=== PATIENT | male | born 1985 | race African-American/Black ===

== ENCOUNTER 2018-05-28 01:07 | Emergency (ER) | payer OTHER, SELFPAY ==
[~2018-05-28] VITALS: Ht 170.2 cm; Wt 71.7 kg
[~2018-05-28 01:07] MED LIST: IBUPROFEN600 MG ORAL; NKM; NORCO 5-325 TA1 EACH ORAL
[2018-05-28 01:25] VITALS: BP 105/69
--- NOTE | 2018-05-28 01:37 | NUR ---
ED Nurse Note: pt verbalized the intention to leave the ed without being seen by the ed, pt stated he doesnt want to wait.
== END 2018-05-28 01:37 | disposition left against medical advice (07) ==
LOC: EMR 01:37
DX: Z53.21 Procedure and treatment not carried out due to patient leaving prior to being seen by health care provider (principal)
CPT/HCPCS: 99281

== ENCOUNTER 2018-06-05 23:45 | Emergency (ER) | payer OTHER ==
[~2018-06-05] VITALS: Ht 170.2 cm; Wt 71.2 kg
[2018-06-06 00:05] VITALS: BP 104/63
--- NOTE | 2018-06-06 00:05 | NUR ---
ED Nurse Note: Suture removal RRF over MIP - placed last Sunday.
[2018-06-06 00:42] VITALS: BP 104/63
--- NOTE | 2018-06-06 00:42 | NUR ---
ER DISCHARGE NOTE: Patient is cleared to be discharged per ERMD, pt is aox4, on room air, with stable vital signs. pt was given dc instructions, pt was able to verbalize understanding, pt id band removed. pt is able to ambulate with steady gait. pt took all belongings.
--- NOTE | 2018-06-06 00:49 | Emergency Room Report ---
History of Present Illness General Chief Complaint: Wound Recheck/Suture Removal Source: Patient Present Illness HPI Patient presents for removal of stitches over his right middle finger Patient reports that they were put in approximately 2 weeks ago at [facility] Patient reports that he had some delay in removal Denies any fevers or chills feels that the area is healing well has full mobility of his fingers denies any redness or swelling Allergies: Coded Allergies: No Known Allergies (Unverified , 10/16/13) Patient History Past Medical History: see triage record Pertinent Family History: none Reviewed Nursing Documentation: PMH: Agreed; PSxH: Agreed Nursing Documentation-PMH Past Medical History: No Stated History Review of Systems All Other Systems: negative except mentioned in HPI Physical Exam Vital Signs Date Time Temp Pulse Resp B/P (MAP) Pulse Ox O2 Delivery O2 Flow Rate FiO2 06/05/18 23:54 97.9 77 16 104/63 97 Room Air Sp02 EP Interpretation: reviewed, normal General Appearance: well appearing, no apparent distress Head: normocephalic, atraumatic Eyes: bilateral eye PERRL, bilateral eye EOMI ENT: hearing grossly normal, normal pharynx, TMs + canals normal, uvula midline Neck: supple Musculoskeletal: normal inspection Neurologic: alert, oriented x3 Skin: other - Healing laceration dorsally, no obvious dehiscence Medical Decision Making Diagnostic Impression: Primary Impression: suture removal ER Course 4 sutures are removed in the appropriate manner using a suture removal kit There was no obvious retained foreign body Patient tolerated the procedure well And has instructions for close outpatient follow-up Last Vital Signs Date Time Temp Pulse Resp B/P (MAP) Pulse Ox O2 Delivery O2 Flow Rate FiO2 06/06/18 00:42 97.9 77 16 104/63 97 Room Air Status: improved Disposition: HOME, SELF-CARE Condition: Improved Referrals: [place] VARGHESE,REFERRING (PCP) Patient Instructions: Suture Removal, Care After Additional Instructions: Patient is provided with the discharge instructions notified to follow up with primary doctor in the next 2-3 days otherwise return to the er with any worsening symptoms. Please note that this report is being documented using [employer] technology. This can lead to erroneous entry secondary to incorrect interpretation by the dictating instrument. Jimbo Martinez DO Jun 06, 2018 00:49
== END 2018-06-06 00:42 | disposition home or self-care (01) ==
LOC: EMR 06-06 00:18
DX: Z48.02 Encounter for removal of sutures (principal)
CPT/HCPCS: 99281

== ENCOUNTER 2018-06-25 12:31 | Emergency (ER) | payer OTHER ==
[~2018-06-25] VITALS: Ht 170.2 cm; Wt 68.0 kg
--- NOTE | 2018-06-25 12:54 | NUR ---
ED Nurse Note: Pt is complaining of rt shoulder pain x 2 weeks. Pt stated that it started after playing basketball 2 weeks ago. Pt is complaining of 7/10 pain in the rt shoulder. Non radiating. A + O x4. Ambulatory. Skin warm to touch.
[2018-06-25 12:56] VITALS: BP 125/80
--- NOTE | 2018-06-25 13:43 | Emergency Room Report ---
History of Present Illness General Chief Complaint: Shoulder Injury Source: Patient Present Illness HPI 33 YO Male presents to the ED c/o 12/10 in severity Right shoulder pain, acute onset after catching a basket ball. pt. is right hand dominant. movement of the right arm such as raising exacerbates pain, rest gives some relief. Denies trauma or fall. Denies numbness tingling or loss of sensation or gross motor movements of the extremities, incontinence of bowel or bladder. Denies CP, Palpitations, LOC, AMS, dizziness, Changes in Vision, weakness or a sudden severe headache. Allergies: Coded Allergies: No Known Allergies (Unverified , 10/16/13) Patient History Past Medical History: none Past Surgical History: none Pertinent Family History: none Reviewed Nursing Documentation: PMH: Agreed; PSxH: Agreed Nursing Documentation-PMH Past Medical History: No Stated History Review of Systems All Other Systems: negative except mentioned in HPI Physical Exam Vital Signs Date Time Temp Pulse Resp B/P (MAP) Pulse Ox O2 Delivery O2 Flow Rate FiO2 06/25/18 12:45 98.1 61 14 128/85 98 Room Air Sp02 EP Interpretation: reviewed, normal General Appearance: no apparent distress, alert, GCS 15, non-toxic Head: normocephalic, atraumatic Eyes: bilateral eye normal inspection, bilateral eye PERRL ENT: hearing grossly normal, normal voice Neck: full range of motion Respiratory: lungs clear, normal breath sounds, speaking full sentences Cardiovascular #1: regular rate, rhythm, normal capillary refill Musculoskeletal: back normal, gait/station normal, normal range of motion, tender - TTP anterior and posterior right shoulder, no weakness, pain with rom and raisign above 90*, positive lift off test. , no clicking or step-off Neurologic: alert, oriented x3, responsive, motor strength/tone normal, sensory intact, speech normal, grossly normal Psychiatric: judgement/insight normal Skin: normal color, no rash, warm/dry, well hydrated Medical Decision Making PA Attestation Dr. Velasquez is my supervising physician whom pt. management has been discussed with. Diagnostic Impression: Primary Impression: Shoulder pain, acute Qualified Codes: M25.511 - Pain in right shoulder Additional Impression: Sprain, subscapularis Qualified Codes: S46.811A - Strain of other muscles, fascia and tendons at shoulder and upper arm level, right arm, initial encounter ER Course 33 YO Male presents to the ED c/o 12/10 in severity Right shoulder pain, acute onset after catching a basket ball. pt. is right hand dominant. movement of the right arm such as raising exacerbates pain, rest gives some relief. Denies trauma or fall. Denies numbness tingling or loss of sensation or gross motor movements of the extremities, incontinence of bowel or bladder. Denies CP, Palpitations, LOC, AMS, dizziness, Changes in Vision, weakness or a sudden severe headache. Ddx considered but are not limited to Fracture, dislocation, contusion, Sprain/ Strain/Spasm, Rotator cuff tear/sprain, tendinitis, labral tear to name a few Vital signs: are WNL, pt. is afebrile H&PE are most consistent with musculoskeletal injury will perform imaging to r/ o fractures/dislocations. ---Positive lift off test. ORDERS: - X-ray's ED INTERVENTIONS: - Toradol IM --- Right arm Sling applied by technical support assistant. Pt. remains neurovascularly intact. d/w pt. conservative treatment, and to follow up with a primary care provider. pt given a list of primary care clinics for follow up. d/w pt. to return to the ED with worsening or new symptoms. DISCHARGE: At this time pt. is stable for d/c to home. Will provide printed patient care instructions, and any necessary prescriptions. Care plan and follow up instructions have been discussed with the patient prior to discharge. Other X-Ray Diagnostic Results Other X-Ray Diagnostic Results : X-Ray ordered: Right shoulder # of Views/Limited Vs Complete: 3 View Indication: Pain EP Interpretation: Yes TALIA Xray: Interpretation reviewed, by supervising MD, and agrees with findings. Interpretation: no dislocation, no soft tissue swelling, no fractures Impression: No acute disease Electronically Signed by: Ingrid Nielson PA-C Last Vital Signs Date Time Temp Pulse Resp B/P (MAP) Pulse Ox O2 Delivery O2 Flow Rate FiO2 06/25/18 12:56 98.0 66 16 125/80 98 Room Air Status: improved Disposition: HOME, SELF-CARE Condition: Stable Scripts Ibuprofen* (MOTRIN*) 600 Mg Tablet 600 MG ORAL THREE TIMES A DAY, #30 TAB 0 Refills Prov: Ingrid Nielson 06/25/18 Referrals: [place] VARGHESE,REFERRING (PCP) Patient Instructions: Shoulder Sprain, Shoulder Pain Additional Instructions: Take medications as directed. Follow up with an PLASTIC FIXTURE BUILDER in 3-5 days, even if your symptoms have resolved. If symptoms persist MRI may be required at the discretion of your PCP or Ortho Specialist. --Please review list of primary care clinics, if you do not already have a primary care provider who can give you an Orthopedic Referral. Return sooner to ED if new symptoms occur, or current symptoms become worse. Do not drink alcohol, drive, or operate heavy machinery while taking [place] as this may cause drowsiness. - Please note that this Emergency Department Report was dictated using [employer] captain technology software, occasionally this can lead to erroneous entry secondary to interpretation by the dictation equipment. Ingrid Nielson Jun 25, 2018 13:43
[2018-06-25] MEDS ORDERED: IBUPROFEN600 MG ORAL (13:44)
[2018-06-25] MEDS ORDERED: Ketorolac 30mg Inj IM ONE (13:45)
[2018-06-25 13:58] VITALS: BP 122/82
--- NOTE | 2018-06-25 13:59 | NUR ---
ER DISCHARGE NOTE: Patient is cleared to be discharged per ERMD, pt is aox4, on room air, with stable vital signs. pt was given dc and prescription instructions, pt was able to verbalize understanding, pt id band removed without complications. pt is able to ambulate with steady gait. pt took all belongings.
--- NOTE | 2018-06-25 19:17 | Diagnostic Imaging Report ---
Indication: Right shoulder pain Findings: 3 views of the right shoulder were obtained. No acute fractures, malalignment, erosions or periostitis are identified. Soft tissues are unremarkable. Impression: Negative for acute injury
== END 2018-06-25 13:59 | disposition home or self-care (01) ==
LOC: EMR 13:20
DX: S43.491A Other sprain of right shoulder joint, initial encounter (principal); X50.9XXA Other and unspecified overexertion or strenuous movements or postures, initial encounter; Y93.67 Activity, basketball; Y92.9 Unspecified place or not applicable
CPT/HCPCS: 73030; 96372; 99283; J1885

== ENCOUNTER 2018-10-08 14:39 | Emergency (ER) | payer OTHER ==
[~2018-10-08] VITALS: Ht 170.2 cm; Wt 69.4 kg
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
[2018-10-08 14:59] VITALS: BP 140/90
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
[2018-10-08] MEDS ORDERED: TYLENOL EXTRA500 MG ORAL (15:40)
[2018-10-08] MEDS ORDERED: BACITRACIN-P28.35 GM TP (15:40)
[2018-10-08 15:48] VITALS: BP 135/76
--- NOTE | 2018-10-08 15:48 | NUR ---
ER DISCHARGE NOTE: Patient is cleared to be discharged per PA, pt is aox4, on room air, with stable vital signs. pt was given dc and prescription instructions, pt was able to verbalize understanding, pt id band removed without complications. pt is able to ambulate with steady gait. pt took all belongings.
--- NOTE | 2018-10-08 16:12 | Diagnostic Imaging Report ---
Indication: Right hand pain Technique: 3 views right hand Comparison: 08/23/2011 Findings: No acute fractures. No dislocations. The joint spaces are preserved. No significant change Impression: Negative
== END 2018-10-08 15:48 | disposition home or self-care (01) ==
LOC: EDBD 14:39 → EMR 15:45
DX: S63.501A Unspecified sprain of right wrist, initial encounter (principal); M79.644 Pain in right finger(s); S60.512A Abrasion of left hand, initial encounter; S60.511A Abrasion of right hand, initial encounter; W05.2XXA Fall from non-moving motorized mobility scooter, initial encounter; Y92.9 Unspecified place or not applicable
CPT/HCPCS: 99283